=== PATIENT | male | born 1965 ===

== ENCOUNTER 2022-04-17 12:57 | Inpatient (IN) ==
[2022-04-17 13:50] LABS: Basophils % 0.5 % (0.0-0.8); Eosinophils # 0.1 10*3/uL (0.0-0.87); Eosinophils % 0.7 % (0.00-10.9); Hematocrit 24.7 VOL% (42.0-52.0); Hemoglobin 8.5 GM/DL (14.0-18.0); Immature Granulocytes % 4.1 %; Lymphocytes # 1.3 10*3/uL (1.4-4.0); Lymphocytes % 17.3 % (21.2-54.2); Mean Corpuscular HGB Conc 34.4 GM/DL (32-36); Mean Corpuscular Volume 105.1 FL (87-102); Mean Platelet Volume 9.4 FL (9.6-12.0); Monocytes # 1.1 10*3/uL (0.11-0.8); Monocytes % 14.9 % (1.7-12.7); NRBC # 0.02 10*3/uL; Neutrophils % 62.5 % (38.7-73.9); Platelet Count 115 T/CUMM (130-400); Red Blood Count 2.35 MC/CUMM (3.8-5.5); Red Cell Distribution Width 17.4 % (9.3-17.3); White Blood Count 7.4 T/CUMM (4-12)
[2022-04-17 13:58] LABS: INR 1.7; PT Patient Result 18.2 SECS (10.5-12.0)
[2022-04-17 14:09] LABS: Albumin 1.3 G/DL (3.4-5.0); Calcium 8.1 MG/DL (8.5-10.1); Osmolality,Calculated 261.7 MOS/KG (273-304); Potassium 3.9 MMOL/L (3.5-5.1); Total Protein 6.9 G/DL (6.4-8.2)
[2022-04-17 14:19] LABS: Bilirubin,Total 12.6 MG/DL (0.20-1.00)
[2022-04-17] MEDS ORDERED: cefTRIAXone 1,000 MG in SODIUM CHLORIDE 0.9% 100 ML IV STA (14:21)
[2022-04-17] MEDS ORDERED: THIAMINE 200 MG/2 ML VIAL IV STA (14:43)
[2022-04-17 15:25] LABS: Glucose,Urine (UA) 100 mg/dL (Negative); Ketones,Urine Trace mg/dL (Negative); Protein,Urine 30 mg/dL (Negative); Urine Appearance Slightly Cloudy (Clear); Urine Color Orange (Yellow); Urine Specific Gravity 1.025 (1.001-1.035); Urine pH 6.5 (4.5-8.0)
[2022-04-17 15:26] LABS: Bilirubin,Urine Large mg/dL (Negative); Blood, Urine Large mg/dL (Negative); Nitrite,Urine Negative (Negative); Urine Urobilinogen >= 8.0 eU/dL (<2.0)
[2022-04-17 15:29] LABS: Bacteria,Urine Few /HPF (Few); Mucus,Urine Occasional /LPF (Occasional); RBC,Urine 4 /HPF (0-4); Squamous Epithelial Cell,Urine Occasional /HPF (0-10)
[2022-04-17] MEDS ORDERED: SODIUM CHLORIDE 0.9% 1,000 ML IV PRN (15:38)
[2022-04-17] MEDS ORDERED: ONDANSETRON 4 MG/2 ML VIAL IV PRN (15:43)
[2022-04-17] MEDS ORDERED: GLUCAGON 1 MG VIAL IM PRN (15:43)
[2022-04-17 15:51] LABS: Hepatitis B Core IgM Quant 0.07 Index; Hepatitis B Surface Ag Quant < 0.10 Index; Hepatitis B Surface Ag Result Non-Reactive (NonReactive); Hepatitis C Virus Ab Quant 1.38 Index
[2022-04-17] MEDS ORDERED: DEXTROSE 10% 250 ML BAG IV PRN (15:51)
[2022-04-17] MEDS ORDERED: chlordiazePOXIDE 25 MG CAPSULE PO PRN (15:51)
[2022-04-17] MEDS: ALBUTEROL/IPRATROPIUM 3 ML NEB RESP TX SCH ×2 (17:02→19:36)
[2022-04-17] MEDS: FUROSEMIDE 40 MG/4 ML VIAL IV SCH (18:18)
[2022-04-17] MEDS: AZITHROMYCIN INJ 500 MG in SODIUM CHLORIDE 0.9% 250 ML IV SCH (18:20)
[2022-04-17] MEDS ORDERED: SPIRONOLACTONE 25 MG TABLET PO SCH (21:00)
[2022-04-18] MEDS: ALBUTEROL/IPRATROPIUM 3 ML NEB RESP TX SCH ×5 (00:13→23:24)
[2022-04-18] MEDS: FUROSEMIDE 40 MG/4 ML VIAL IV SCH ×3 (01:08→18:30)
[2022-04-18 04:18] LABS: Basophils % 0.4 % (0.0-0.8); Eosinophils # 0.1 10*3/uL (0.0-0.87); Eosinophils % 0.8 % (0.00-10.9); Hematocrit 22.3 VOL% (42.0-52.0); Hemoglobin 7.7 GM/DL (14.0-18.0); Immature Granulocytes % 2.8 %; Immature Granulocytes Absolute 0.21 #; Lymphocytes # 1.3 10*3/uL (1.4-4.0); Lymphocytes % 17.3 % (21.2-54.2); Mean Corpuscular HGB Conc 34.5 GM/DL (32-36); Mean Corpuscular Volume 106.7 FL (87-102); Mean Platelet Volume 9.5 FL (9.6-12.0); Monocytes # 1.1 10*3/uL (0.11-0.8); Monocytes % 14.6 % (1.7-12.7); Neutrophils % 64.1 % (38.7-73.9); Platelet Count 102 T/CUMM (130-400); Red Blood Count 2.09 MC/CUMM (3.8-5.5); Red Cell Distribution Width 17.8 % (9.3-17.3); White Blood Count 7.4 T/CUMM (4-12)
[2022-04-18 04:26] LABS: INR 1.9; PT Patient Result 20.3 SECS (10.5-12.0); Partial Thromboplastin Time 47.9 SECS (23.7-32.9)
[2022-04-18 04:42] LABS: Albumin 1.1 G/DL (3.4-5.0); Bilirubin,Direct 8.4 MG/DL (0.0-0.20); Bilirubin,Indirect 3.5 MG/DL (0.0-1.0); Bilirubin,Total 11.9 MG/DL (0.20-1.00); Calcium 7.6 MG/DL (8.5-10.1); Hypochromia Slight; Potassium 3.8 MMOL/L (3.5-5.1); Thyroid Stimulating Hormone 0.671 uIU/ml (0.358-3.74); Total Protein 6.2 G/DL (6.4-8.2)
[2022-04-18 04:43] LABS: Platelet Estimate Decreased
[2022-04-18 07:06] LABS: AFP Tumor 1187.9 NG/ML (0-8); Cancer Antigen 19-9 41.39 U/ML (0-35); Carcinoembryonic Antigen 5.5 NG/ML (0.0-5.0)
[2022-04-18] MEDS ORDERED: SODIUM CHLORIDE 0.9% 1,000 ML IV PRN (07:08)
[2022-04-18] MEDS ORDERED: PANTOPRAZOLE 40 MG TABLET PO SCH (09:00)
[2022-04-18 09:31] LABS: Folate 6.27 NG/ML (5.38-24.0)
[2022-04-18 09:39] LABS: INR 1.9; PT Patient Result 20.1 SECS (10.5-12.0)
[2022-04-18] MEDS: ISOSORBIDE MONONITRATE 30 MG TABLET PO SCH (10:26)
[2022-04-18] MEDS: THIAMINE 100 MG TABLET PO SCH (10:26)
[2022-04-18] MEDS: FOLIC ACID 1 MG TABLET PO SCH (10:26)
[2022-04-18] MEDS: PANTOPRAZOLE 40 MG TABLET PO SCH ×2 (10:26→21:37)
[2022-04-18] MEDS: SPIRONOLACTONE 100 MG TABLET PO SCH (10:26)
[2022-04-18] MEDS: cefTRIAXone 1,000 MG in SODIUM CHLORIDE 0.9% 100 ML IV SCH (20:00)
[2022-04-18] MEDS: AZITHROMYCIN INJ 500 MG in SODIUM CHLORIDE 0.9% 250 ML IV SCH (21:38)
[2022-04-19] MEDS: FUROSEMIDE 40 MG/4 ML VIAL IV SCH ×4 (01:21→22:11)
[2022-04-19] MEDS: ALBUTEROL/IPRATROPIUM 3 ML NEB RESP TX SCH ×3 (07:21→19:42)
[2022-04-19] MEDS: LACTATED RINGERS 1,000 ML IV SCH (07:39)
[2022-04-19 07:53] LABS: Basophils # 0.1 10*3/uL (0.0-0.2); Basophils % 0.6 % (0.0-0.8); Eosinophils # 0.1 10*3/uL (0.0-0.87); Eosinophils % 1.1 % (0.00-10.9); Hematocrit 28.6 VOL% (42.0-52.0); Immature Granulocytes % 3.3 %; Immature Granulocytes Absolute 0.29 #; Lymphocytes # 1.5 10*3/uL (1.4-4.0); Lymphocytes % 16.6 % (21.2-54.2); Mean Corpuscular HGB Conc 32.9 GM/DL (32-36); Mean Corpuscular Volume 103.6 FL (87-102); Mean Platelet Volume 9.7 FL (9.6-12.0); Monocytes # 1.2 10*3/uL (0.11-0.8); Monocytes % 13.4 % (1.7-12.7); Platelet Count 113 T/CUMM (130-400); Red Cell Distribution Width 20.9 % (9.3-17.3); White Blood Count 8.9 T/CUMM (4-12)
[2022-04-19 07:54] LABS: Red Blood Count 2.76 MC/CUMM (3.8-5.5)
[2022-04-19 07:55] LABS: Hemoglobin 9.4 GM/DL (14.0-18.0)
[2022-04-19 08:02] LABS: INR 1.9; PT Patient Result 20.4 SECS (10.5-12.0); Partial Thromboplastin Time 46.1 SECS (23.7-32.9)
[2022-04-19 08:09] LABS: Calcium 8.1 MG/DL (8.5-10.1); Osmolality,Calculated 271.2 MOS/KG (273-304); Potassium 4.1 MMOL/L (3.5-5.1)
[2022-04-19] MEDS ORDERED: DIAZEPAM 5 MG TABLET PO ONE (08:10)
[2022-04-19] MEDS ORDERED: LIDOCAINE 2% 5 ML VIAL ONE (08:49)
[2022-04-19] MEDS ORDERED: propofoL 200 MG/20 ML VIAL IV ONE (08:49)
[2022-04-19] MEDS ORDERED: ETOMIDATE 20 MG/10 ML VIAL IV ONE (08:49)
[2022-04-19] MEDS: ISOSORBIDE MONONITRATE 30 MG TABLET PO SCH (10:54)
[2022-04-19] MEDS: PANTOPRAZOLE 40 MG TABLET PO SCH ×2 (10:54→21:16)
[2022-04-19] MEDS: THIAMINE 100 MG TABLET PO SCH (10:54)
[2022-04-19] MEDS: SPIRONOLACTONE 100 MG TABLET PO SCH (10:54)
[2022-04-19] MEDS: LACTULOSE 20 GM/30 ML UDCUP PO SCH ×2 (10:55→21:16)
[2022-04-19] MEDS: FOLIC ACID 1 MG TABLET PO SCH (10:55)
[2022-04-19] MEDS: cefTRIAXone 1,000 MG in SODIUM CHLORIDE 0.9% 100 ML IV SCH (21:16)
[2022-04-19] MEDS: AZITHROMYCIN INJ 500 MG in SODIUM CHLORIDE 0.9% 250 ML IV SCH (22:09)
[2022-04-20] MEDS: ALBUTEROL/IPRATROPIUM 3 ML NEB RESP TX SCH ×4 (01:06→19:47)
[2022-04-20 04:02] LABS: Basophils % 0.4 % (0.0-0.8); Eosinophils # 0.1 10*3/uL (0.0-0.87); Eosinophils % 0.7 % (0.00-10.9); Hematocrit 25.9 VOL% (42.0-52.0); Hemoglobin 8.7 GM/DL (14.0-18.0); Immature Granulocytes % 4.7 %; Immature Granulocytes Absolute 0.45 #; Lymphocytes # 1.8 10*3/uL (1.4-4.0); Mean Corpuscular HGB Conc 33.6 GM/DL (32-36); Mean Platelet Volume 9.6 FL (9.6-12.0); Monocytes # 1.3 10*3/uL (0.11-0.8); Monocytes % 13.4 % (1.7-12.7); Neutrophils % 61.8 % (38.7-73.9); Platelet Count 109 T/CUMM (130-400); Red Blood Count 2.49 MC/CUMM (3.8-5.5); Red Cell Distribution Width 21.6 % (9.3-17.3); White Blood Count 9.6 T/CUMM (4-12)
[2022-04-20 04:10] LABS: PT Patient Result 20.9 SECS (10.1-12.1); Partial Thromboplastin Time 49.5 SECS (23.7-32.9)
[2022-04-20 04:16] LABS: Calcium 7.7 MG/DL (8.5-10.1)
[2022-04-20 04:20] LABS: Calcium 7.6 MG/DL (8.5-10.1); Osmolality,Calculated 278.8 MOS/KG (273-304); Total Protein 5.9 G/DL (6.4-8.2)
[2022-04-20 04:22] LABS: Bilirubin,Total 12.9 MG/DL (0.20-1.00)
[2022-04-20] MEDS ORDERED: SODIUM CHLORIDE 0.9% 1,000 ML IV PRN (06:29)
[2022-04-20] MEDS: THIAMINE 100 MG TABLET PO SCH (08:54)
[2022-04-20] MEDS: ISOSORBIDE MONONITRATE 30 MG TABLET PO SCH (08:54)
[2022-04-20] MEDS: PANTOPRAZOLE 40 MG TABLET PO SCH ×2 (08:54→21:20)
[2022-04-20] MEDS: LACTULOSE 20 GM/30 ML UDCUP PO SCH ×2 (08:54→21:19)
[2022-04-20] MEDS: FOLIC ACID 1 MG TABLET PO SCH (08:54)
[2022-04-20] MEDS: SPIRONOLACTONE 100 MG TABLET PO SCH (08:54)
[2022-04-20] MEDS ORDERED: DIAZEPAM 5 MG TABLET PO ONE (09:18)
[2022-04-20] MEDS ORDERED: FUROSEMIDE 40 MG TABLET PO SCH (12:00)
[2022-04-20 14:10] LABS: Neutrophils,Peritoneal Fluid 33 %
[2022-04-20 14:11] LABS: RBC,Peritoneal Fluid 47 T/CUMM
[2022-04-20] MEDS: LACTATED RINGERS 1,000 ML IV SCH (15:11)
[2022-04-20] MEDS ORDERED: FUROSEMIDE 40 MG/4 ML VIAL IV SCH (22:00)
[2022-04-20] MEDS: cefTRIAXone 1,000 MG in SODIUM CHLORIDE 0.9% 100 ML IV SCH (22:04)
[2022-04-20] MEDS: AZITHROMYCIN INJ 500 MG in SODIUM CHLORIDE 0.9% 250 ML IV SCH (22:20)
[2022-04-21] MEDS: ALBUTEROL/IPRATROPIUM 3 ML NEB RESP TX SCH ×3 (00:04→13:10)
[2022-04-21 05:43] LABS: Basophils % 0.5 % (0.0-0.8); Eosinophils # 0.1 10*3/uL (0.0-0.87); Eosinophils % 0.7 % (0.00-10.9); Hematocrit 23.8 VOL% (42.0-52.0); Immature Granulocytes % 3.3 %; Immature Granulocytes Absolute 0.28 #; Lymphocytes # 1.7 10*3/uL (1.4-4.0); Lymphocytes % 20.6 % (21.2-54.2); Mean Corpuscular HGB Conc 33.6 GM/DL (32-36); Mean Corpuscular Volume 104.8 FL (87-102); Mean Platelet Volume 9.4 FL (9.6-12.0); Monocytes # 1.3 10*3/uL (0.11-0.8); Monocytes % 15.8 % (1.7-12.7); Neutrophils % 59.1 % (38.7-73.9); Platelet Count 97 T/CUMM (130-400); Red Blood Count 2.27 MC/CUMM (3.8-5.5); Red Cell Distribution Width 21.8 % (9.3-17.3); White Blood Count 8.4 T/CUMM (4-12)
[2022-04-21 05:51] LABS: INR 1.8; PT Patient Result 18.9 SECS (10.1-12.1); Partial Thromboplastin Time 41.3 SECS (23.7-32.9)
[2022-04-21 06:01] LABS: Albumin 1.3 G/DL (3.4-5.0); Calcium 7.9 MG/DL (8.5-10.1); Osmolality,Calculated 282.5 MOS/KG (273-304); Potassium 4.1 MMOL/L (3.5-5.1); Total Protein 5.8 G/DL (6.4-8.2)
[2022-04-21 06:02] LABS: Bilirubin,Total 14.9 MG/DL (0.20-1.00)
[2022-04-21 06:14] LABS: Eosinophils 1 % (0-10); Lymphocytes 27 % (20-55); Total Cells Counted 100
[2022-04-21 06:15] LABS: Platelet Estimate Decreased
[2022-04-21] MEDS ORDERED: SODIUM CHLORIDE 0.9% 1,000 ML IV PRN ×2 (06:20→06:24)
[2022-04-21] MEDS ORDERED: FUROSEMIDE 20 MG TABLET PO SCH (09:00)
[2022-04-21] MEDS ORDERED: SPIRONOLACTONE 50 MG TABLET PO SCH (09:00)
[2022-04-21] MEDS: LACTULOSE 20 GM/30 ML UDCUP PO SCH (09:09)
[2022-04-21] MEDS: PANTOPRAZOLE 40 MG TABLET PO SCH (09:09)
[2022-04-21] MEDS: THIAMINE 100 MG TABLET PO SCH (09:09)
[2022-04-21] MEDS: FOLIC ACID 1 MG TABLET PO SCH (09:10)
[2022-04-21] MEDS: ISOSORBIDE MONONITRATE 30 MG TABLET PO SCH (09:10)
[2022-04-21] MEDS: LACTATED RINGERS 1,000 ML IV SCH (11:23)
[2022-04-21 15:06] VITALS: BP 147/88
== END 2022-04-21 14:57 | disposition left against medical advice (07) | DRG 432 ==
LOC: N.ED 12:57 → N.EDINP 15:43 → SUATTDRO 15:43 → N.5E 16:11 → N.TELEN 16:17
PROVIDERS: ADMIT Internal Medicine; ATTEND Internal Medicine